=== PATIENT | female | born 1955 | race Caucasian/White ===

== ENCOUNTER → 2016-05-03 | Outpatient (CLI) | payer OTHER ==
[~2016-05-03] MED LIST: AMLODIPINE BESY10 MG PO; COZAAR100 MG PO; CYMBALTA30 MG PO; CYMBALTA60 MG PO; GABAPENTIN800 MG PO; ZOCOR10 MG PO; ZOCOR40 MG PO; blood pressure
== END | disposition home or self-care (01) ==
LOC: RAD 10:35
DX: Z02.71 Encounter for disability determination (principal); M17.12 Unilateral primary osteoarthritis, left knee; M17.11 Unilateral primary osteoarthritis, right knee
CPT/HCPCS: 73560